=== PATIENT | female | born 1950 | race American Indian/Alaskan Native ===

== ENCOUNTER 2017-11-27 08:28 | Day surgery (SDC) | payer MEDICARE, OTHER ==
[~2017-11-27 08:28] MED LIST: Lactated Ringers 1,000 ML IV SCH; Lidocaine 1%/Sod Bicarbonate in NS 8.4% 1 ML Syringe PRN; Sodium Chloride 0.9% 10 ML Syringe FLUSH PRN
[2017-11-27] MEDS ORDERED: Lidocaine 1% 4 ML ONE (08:34)
[2017-11-27] MEDS ORDERED: Midazolam 1 MG/ML 2 ML SDV ONE (08:35)
[2017-11-27] MEDS ORDERED: Propofol 200 MG/20 ML SDV ONE (08:35)
[2017-11-27] MEDS ORDERED: fentaNYL 100 MCG/2 ML SDV ONE (08:35)
--- NOTE | 2017-11-27 08:59 | PCM.PREANE ---
Preanesthetic Assessment - Anesthesia/Transfusion/Family Hx Anesthesia History: Prior Anesthesia Without Reaction Family History of Anesthesia Reaction: No Transfusion History: No Prior Transfusion(s) - Review of Systems General: No Symptoms Pulmonary: No Symptoms Cardiovascular: No Symptoms Gastrointestinal: No Symptoms Neurological: No Symptoms Other: Reports: Thyroid Problems - Physical Assessment NPO Status Date: 11/26/17 NPO Status Time: 21:00 (sip of water with am pills) Pulse: 66 O2 Sat by Pulse Oximetry: 98 Respiratory Rate: 17 Blood Pressure: 125/55 Temperature: 98.2 F Height: 5 ft 7 in Weight: 76.1 kg ASA Class: 3 Mental Status: Alert & Oriented x3 Airway Class: Mallampati = 1 Dentition: Reports: Dentures (upper), Partial (bottom) Thyro-Mental Finger Breadths: 3 Mouth Opening Finger Breadths: 3 ROM/Head Extension: Full Lungs: Clear to Auscultation, Normal Respiratory Effort Cardiovascular: Regular Rate, Regular Rhythm - Allergies Allergies/Adverse Reactions: Allergies Allergy/AdvReac Type Severity Reaction Status Date / Time No Known Allergies Allergy Verified 11/26/17 12:18 - Blood Blood Available: No - Acknowledgements Anesthesia Type Planned: MAC Pt an Appropriate Candidate for the Planned Anesthesia: Yes Alternatives and Risks of Anesthesia Discussed w Pt/Guardian: Yes Pt/Guardian Understands and Agrees with Anesthesia Plan: Yes PreAnesthesia Questionnaire HEENT History: Reports: Impaired Vision, Other (See Below) Other HEENT History: deviated septum, nasal turbinate hypertrophy, rhinitis, nasal congestion, glasses, hearing aids, dentures Cardiovascular History: Reports: High Cholesterol, Hypertension Respiratory History: Reports: None Gastrointestinal History: Reports: GERD Genitourinary History: Reports: None GU[employer] FAMILY MEMBER History: Reports: None Musculoskeletal History: Reports: None Neurological History: Reports: None Endocrine/Metabolic History: Reports: None Hematologic History: Reports: None Immunologic History: Reports: None Oncologic (Cancer) History: Reports: None Dermatologic History: Reports: None - Past Surgical History Head Surgeries/Procedures: Reports: None Respiratory Surgical History: Reports: None GI Surgical History: Reports: Colonoscopy Female Surgical History: Reports: None Male Surgical History: Reports: None Endocrine Surgical History: Reports: None Neurological Surgical History: Reports: None Musculoskeletal Surgical History: Reports: None Oncologic Surgical History: Reports: None Dermatological Surgical History: Reports: None - SUBSTANCE USE Smoking Status *Q: Current Every Day Smoker (1 ppd for 40 years) Tobacco Use Within Last Twelve Months: Cigarettes Second Hand Smoke Exposure: Yes Days Per Week of Alcohol Use: 7 Number of Drinks Per Day: 3 (gin tonic) Total Drinks Per Week: 21 Recreational Drug Use History: No - HOME MEDS Home Medications: Home Meds Aspirin [Familia Chewable] 81 mg PO DAILY 05/25/14 [History] Gabapentin [Neurontin] 300 mg PO BID 05/25/14 [History] Losartan [Cozaar] 50 mg PO DAILY 05/25/14 [History] Levothyroxine [Levothroid] 137 mcg PO DAILY 11/26/17 [History] Melatonin 10 mg PO BEDTIME 11/26/17 [History] atorvaSTATin Calcium [Atorvastatin Calcium] 20 mg PO DAILY 11/26/17 [History] - CURRENT (IN HOUSE) MEDS Current Meds: Current Medications Lactated Ringer's (Ringers, Lactated) 1,000 mls @ 125 mls/hr IV ASDIRECTED NAMITA Stop: 11/27/17 23:00 Lidocaine/Sodium Bicarbonate (Buffered Lidocaine 1% In Ns 8.4%) 0.25 ml .XX ONETIME PRN PRN Reason: Prior to IV Start Stop: 11/27/17 18:00 Sodium Chloride (Saline Flush) 10 ml FLUSH ASDIRECTED PRN PRN Reason: Keep Vein Open Stop: 11/27/17 18:00 Discontinued Medications Fentanyl (Sublimaze) Confirm Administered Dose 100 mcg .ROUTE .STK-MED ONE Stop: 11/27/17 08:36 Lidocaine HCl (Xylocaine-Mpf 1%) Confirm Administered Dose 4 mls @ as directed .ROUTE .STK-MED ONE Stop: 11/27/17 08:35 Midazolam HCl (Versed 1 Mg/Ml) Confirm Administered Dose 2 mg .ROUTE .STK-MED ONE Stop: 11/27/17 08:36 Propofol (Diprivan 20 Ml) Confirm Administered Dose 400 mg .ROUTE .STK-MED ONE Stop: 11/27/17 08:36
--- NOTE | 2017-11-27 09:40 | PCM.OPNOTE ---
- General Post-Op/Procedure Note Date of Surgery/Procedure: 11/27/17 Operative Procedure(s): Colonoscopy Findings: 1. Uncomplicated small sigmoid diverticulosis 2. External tag with concomitant external hemorrhoids Pre Op Diagnosis: Screening colonoscopy Post-Op Diagnosis: 1. Uncomplicated sigmoid diverticulosis. 2. External hemorrhoids with anal tag Anesthesia Technique: MAC, Moderate Sedation Primary Surgeon: Franky Perry Pathology: None EBL in mLs: 0 Complications: None Condition: Good Free Text/Narrative:: After adequate IV sedation and analgesia with monitoring the patient was placed on her left side. Perianal inspection revealed the external hemorrhoid and anal tag. Digital rectal examination was otherwise unremarkable. A lubricated colonoscope was inserted into the rectum then advanced under direct vision to the cecum without difficulty. The bowel preparation was excellent. The cecum, ascending colon, transverse, and descending colons were endoscopically normal with no mass lesions or inflammatory changes seen. The sigmoid had a few scattered uncomplicated diverticuli. In the retroflexed rectal view there was an anal tag. The rectum was otherwise unremarkable. Ships Equipment Engineer photographs were taken for the patient and for the medical record. There were no complications. Air was removed as I finished the procedure.
[2017-11-27] MEDS ORDERED: Ondansetron 4 MG/2 ML SDV IVPUSH PRN (09:46)
--- NOTE | 2017-11-27 09:49 | PCM48HPAN ---
Post Anesthesia Note - EVALUATION WITHIN 48HRS OF ANESTHETIC Vital Signs in Normal Range: Yes Patient Participated in Evaluation: Yes Respiratory Function Stable: Yes Airway Patent: Yes Cardiovascular Function Stable: Yes Hydration Status Stable: Yes Pain Control Satisfactory: Yes Nausea and Vomiting Control Satisfactory: Yes Mental Status Recovered: Yes
== END 2017-11-27 10:20 | disposition home or self-care (01) ==
LOC: JD.SDS 08:28
PROVIDERS: ATTEND Surgery
DX: Z12.11 Encounter for screening for malignant neoplasm of colon (principal); K57.30 Diverticulosis of large intestine without perforation or abscess without bleeding; K64.4 Residual hemorrhoidal skin tags; I10 Essential (primary) hypertension; E78.00 Pure hypercholesterolemia, unspecified; K21.9 Gastro-esophageal reflux disease without esophagitis; E03.9 Hypothyroidism, unspecified; Z79.82 Long term (current) use of aspirin; Z79.899 Other long term (current) drug therapy; F17.210 Nicotine dependence, cigarettes, uncomplicated
CPT/HCPCS: G0121; J2250; J3010; 00812; J2001; J2704